=== PATIENT | male | born 1990 | race Caucasian/White ===

== ENCOUNTER 2021-05-23 15:43 | Inpatient (IN) | payer OTHER ==
[2021-05-23] MEDS ORDERED: MAGNESIUM HYDROX 2400MG/30ML ORAL SUSPENSION 30 ML CUP PO PRN (17:45)
[2021-05-23] MEDS ORDERED: BISMUTH SUBSALICYLATE 524 MG/30 ML PO PRN (17:45)
[2021-05-23] MEDS ORDERED: NICOTINE 10 MG CARTRIDGE (INHALER) IH PRN (17:45)
[2021-05-23] MEDS ORDERED: cloNIDine HCL 0.1 MG TABLET PO PRN (17:45)
[2021-05-23] MEDS ORDERED: methaDONE HCL 10 MG TABLET (FOR DETOX USE ONLY) PO ONE (17:45)
[2021-05-23] MEDS ORDERED: MAGNESIUM CITRATE 300 ML BOTTLE PO PRN (17:45)
[2021-05-23] MEDS ORDERED: ONDANSETRON *ODT* 4 MG TABLET SL PRN (17:45)
[2021-05-23] MEDS ORDERED: MAG HYDROX/AL HYDROX/SIMETH 30 ML UNIT-DOSE CUP PO PRN (17:45)
[2021-05-23] MEDS ORDERED: IBUPROFEN 400 MG TABLET (FP) PO PRN (17:45)
[2021-05-23] MEDS ORDERED: ACETAMINOPHEN 325 MG TABLET (FP) PO PRN ×2 (17:45)
[2021-05-23] MEDS ORDERED: MENTHOL/PHENOL 1 EACH UD MM PRN (17:45)
[2021-05-23] MEDS ORDERED: chlordiazePOXIDE HCL 25 MG CAPSULE PO PRN (17:58)
[2021-05-23 19:56] VITALS: BMI 21.8
[2021-05-23] MEDS: hydrOXYzine PAMOATE 25 MG CAPSULE (FP) PO SCH ×3 (22:30→23:13)
[2021-05-23] MEDS: THIAMINE HCL 100 MG TABLET (FP) PO SCH (22:32)
[2021-05-23] MEDS: chlordiazePOXIDE HCL 25 MG CAPSULE PO SCH (22:33)
[2021-05-23] MEDS: MELATONIN 5 MG TABLETS PO SCH (22:34)
[2021-05-24] MEDS: chlordiazePOXIDE HCL 25 MG CAPSULE PO SCH ×5 (05:54→22:31)
[2021-05-24] MEDS: hydrOXYzine PAMOATE 25 MG CAPSULE (FP) PO SCH ×5 (05:55→22:23)
[2021-05-24] MEDS ORDERED: methaDONE HCL 10 MG TABLET (FOR DETOX USE ONLY) ONE (09:23)
[2021-05-24] MEDS: DOLUTEGRAVIR SODIUM 50 MG TABLET (NON-FORMULARY) PO SCH (10:20)
[2021-05-24] MEDS: PRENATAL VITAMINS W/ FOLIC ACID TABLET (FP) PO SCH (10:21)
[2021-05-24] MEDS: EMTRICITABINE 200MG/TENOFOVIR 300MG PO SCH (10:21)
[2021-05-24 14:43] LABS: HEMATOCRIT 36.8 % (35.4-49); HEMOGLOBIN 12.2 GM/dL (11.7-16.9); MCHC 33.3 g/dl (32.0-35.9); MEAN CELL VOLUME 87.2 fl (80-96); MEAN PLT VOLUME 8.5 fl (7.5-11.1); PLATELET COUNT 206 10^3/uL (134-434); RBC 4.22 M/mm3 (4.00-5.60); RDW 12.8 % (11.9-15.9); WHITE BLOOD COUNT 4.5 K/mm3 (4.0-10.0)
[2021-05-24 14:59] LABS: ALBUMIN 2.9 g/dl (3.4-5.0); BLOOD UREA NITROGEN 12.5 mg/dL (7-18)
[2021-05-24 15:02] LABS: CREATININE 0.8 mg/dL (0.55-1.3)
[2021-05-24 15:03] LABS: BILIRUBIN,TOTAL 0.4 mg/dL (0.2-1)
[2021-05-24 15:04] LABS: TOT PROT 6.2 g/dl (6.4-8.2)
[2021-05-24 15:36] LABS: HIV INTERPRETATION NEGATIVE (NEGATIVE)
[2021-05-24] MEDS: METHOCARBAMOL 500 MG TABLET PO PRN (18:42)
[2021-05-24] MEDS: THIAMINE HCL 100 MG TABLET (FP) PO SCH (22:21)
[2021-05-24] MEDS: MELATONIN 5 MG TABLETS PO SCH (22:22)
[2021-05-25] MEDS: chlordiazePOXIDE HCL 25 MG CAPSULE PO SCH ×5 (05:04→22:25)
[2021-05-25] MEDS: hydrOXYzine PAMOATE 25 MG CAPSULE (FP) PO SCH ×5 (05:04→22:25)
[2021-05-25] MEDS ORDERED: methaDONE HCL 10 MG TABLET (FOR DETOX USE ONLY) PO ONE (10:00)
[2021-05-25] MEDS: METHOCARBAMOL 500 MG TABLET PO PRN ×2 (10:16→17:29)
[2021-05-25] MEDS: EMTRICITABINE 200MG/TENOFOVIR 300MG PO SCH (10:18)
[2021-05-25] MEDS: DOLUTEGRAVIR SODIUM 50 MG TABLET (NON-FORMULARY) PO SCH (10:18)
[2021-05-25] MEDS: PRENATAL VITAMINS W/ FOLIC ACID TABLET (FP) PO SCH (10:24)
[2021-05-25] MEDS: THIAMINE HCL 100 MG TABLET (FP) PO SCH (22:24)
[2021-05-25] MEDS: MELATONIN 5 MG TABLETS PO SCH (22:25)
[2021-05-26] MEDS ORDERED: chlordiazePOXIDE HCL 10 MG CAPSULE PO PRN
[2021-05-26] MEDS: hydrOXYzine PAMOATE 25 MG CAPSULE (FP) PO SCH ×5 (05:51→22:10)
[2021-05-26] MEDS: chlordiazePOXIDE HCL 10 MG CAPSULE PO SCH ×4 (05:51→22:10)
[2021-05-26] MEDS ORDERED: methaDONE HCL 10 MG TABLET (FOR DETOX USE ONLY) ONE (09:53)
[2021-05-26] MEDS: PRENATAL VITAMINS W/ FOLIC ACID TABLET (FP) PO SCH (10:16)
[2021-05-26] MEDS: EMTRICITABINE 200MG/TENOFOVIR 300MG PO SCH (10:20)
[2021-05-26] MEDS: DOLUTEGRAVIR SODIUM 50 MG TABLET (NON-FORMULARY) PO SCH (10:20)
[2021-05-26] MEDS: MELATONIN 5 MG TABLETS PO SCH (22:10)
[2021-05-26] MEDS: THIAMINE HCL 100 MG TABLET (FP) PO SCH (22:10)
[2021-05-26] MEDS: METHOCARBAMOL 500 MG TABLET PO PRN (22:13)
[2021-05-27] MEDS ORDERED: chlordiazePOXIDE HCL 10 MG CAPSULE PO SCH (05:00)
[2021-05-27] MEDS: hydrOXYzine PAMOATE 25 MG CAPSULE (FP) PO SCH ×2 (05:51→10:02)
[2021-05-27 09:00] VITALS: BP 99/59; PULSE 100; TEMP 98
[2021-05-27] MEDS ORDERED: methaDONE HCL 10 MG TABLET (FOR DETOX USE ONLY) PO ONE (10:00)
[2021-05-27] MEDS: PRENATAL VITAMINS W/ FOLIC ACID TABLET (FP) PO SCH (10:03)
[2021-05-27] MEDS: DOLUTEGRAVIR SODIUM 50 MG TABLET (NON-FORMULARY) PO SCH (10:03)
[2021-05-27] MEDS: METHOCARBAMOL 500 MG TABLET PO PRN (10:03)
[2021-05-27] MEDS: EMTRICITABINE 200MG/TENOFOVIR 300MG PO SCH (10:03)
[2021-05-28] MEDS ORDERED: chlordiazePOXIDE HCL 10 MG CAPSULE PO ONE (05:00)
== END 2021-05-27 10:50 | disposition left against medical advice (07) | DRG 770 ==
LOC: YASAS 15:43 → Y3N 19:18
PROVIDERS: ADMIT Allergy & Immunology; ATTEND Allergy & Immunology
PROC: HZ2ZZZZ Detoxification Services for Substance Abuse Treatment (ICD-10-PCS; principal; 2021-05-23)
DX: F11.23 Opioid dependence with withdrawal (principal); F10.230 Alcohol dependence with withdrawal, uncomplicated; F14.20 Cocaine dependence, uncomplicated; F17.210 Nicotine dependence, cigarettes, uncomplicated; L40.9 Psoriasis, unspecified; E46 Unspecified protein-calorie malnutrition; Z68.21 Body mass index [BMI] 21.0-21.9, adult; M54.59 Other low back pain; G89.29 Other chronic pain; Z20.6 Contact with and (suspected) exposure to human immunodeficiency virus [HIV]
CPT/HCPCS: 36415; 80053; 85027; 86780; 87389; C9803; U0003; U0005

== ENCOUNTER 2021-12-21 17:57 | Inpatient (IN) | payer OTHER ==
[2021-12-21 21:36] VITALS: BMI 20.5
[2021-12-21] MEDS ORDERED: MAG HYDROX/AL HYDROX/SIMETH 30 ML UNIT-DOSE CUP PO PRN (21:54)
[2021-12-21] MEDS ORDERED: IBUPROFEN 600 MG TABLET (FP) PO PRN (21:54)
[2021-12-21] MEDS ORDERED: DICYCLOMINE HCL 10 MG CAPSULE PO PRN (21:54)
[2021-12-21] MEDS ORDERED: MAGNESIUM HYDROX 2400MG/30ML ORAL SUSPENSION 30 ML CUP PO PRN (21:54)
[2021-12-21] MEDS ORDERED: NICOTINE POLACRILEX 2 MG GUM BUC PRN (21:54)
[2021-12-21] MEDS ORDERED: BENZOCAINE/MENTHOL (CHLORASEPTIC ) LOZENGE MM PRN (21:54)
[2021-12-21] MEDS ORDERED: NICOTINE 7 MG/24 HOURS TOPICAL PATCH TD PRN (21:54)
[2021-12-21] MEDS ORDERED: ONDANSETRON *ODT* 4 MG TABLET SL PRN (21:54)
[2021-12-21] MEDS ORDERED: NICOTINE 10 MG CARTRIDGE (INHALER) IH PRN (21:54)
[2021-12-21] MEDS ORDERED: IBUPROFEN 400 MG TABLET (FP) PO PRN (21:54)
[2021-12-21] MEDS ORDERED: LOPERAMIDE HCL 2 MG CAPSULE PO PRN (21:54)
[2021-12-21] MEDS ORDERED: P-EPHED 60MG/TRIPROLIDI 2.5MG TABLET PO PRN (21:54)
[2021-12-21] MEDS ORDERED: MAGNESIUM CITRATE 300 ML BOTTLE PO PRN (21:54)
[2021-12-21] MEDS ORDERED: BISMUTH SUBSALICYLATE 524 MG/30 ML PO PRN (21:54)
[2021-12-21] MEDS ORDERED: ACETAMINOPHEN 325 MG TABLET (FP) PO PRN ×2 (21:54)
[2021-12-21] MEDS ORDERED: guaiFENesin 200 MG/10 ML 10 ML UNIT-DOSE CUPS PO PRN (21:54)
[2021-12-21] MEDS ORDERED: HYDROCORTISONE 1% TOPICAL CREAM 30 GM TUBE TP PRN (21:58)
[2021-12-21] MEDS ORDERED: methaDONE HCL 10 MG TABLET (FOR DETOX USE ONLY) PO ONE (21:58)
[2021-12-21] MEDS ORDERED: cloNIDine HCL 0.1 MG TABLET PO PRN (21:58)
[2021-12-22] MEDS: METHOCARBAMOL 500 MG TABLET PO PRN ×3 (03:24→19:11)
[2021-12-22] MEDS: diazePAM 5 MG TABLET PO PRN ×4 (03:25→23:08)
[2021-12-22] MEDS: MELATONIN 5 MG TABLETS PO SCH ×2 (04:07→22:16)
[2021-12-22] MEDS: THIAMINE HCL 100 MG TABLET (FP) PO SCH ×2 (04:08→22:17)
[2021-12-22] MEDS ORDERED: methaDONE HCL 10 MG TABLET (FOR DETOX USE ONLY) ONE (09:52)
[2021-12-22] MEDS: PRENATAL VITAMINS W/ FOLIC ACID TABLET (FP) PO SCH (10:15)
[2021-12-22] MEDS: hydrOXYzine PAMOATE 25 MG CAPSULE (FP) PO PRN ×2 (10:15→22:19)
[2021-12-23] MEDS: diazePAM 5 MG TABLET PO PRN ×4 (05:48→22:06)
[2021-12-23] MEDS ORDERED: methaDONE HCL 10 MG TABLET (FOR DETOX USE ONLY) PO ONE (10:00)
[2021-12-23 10:24] LABS: BASO % 1.2 % (0-2.0); EOS % 2.9 % (0-4.5); HEMATOCRIT 41.7 % (35.4-49); HEMOGLOBIN 13.9 GM/dL (11.7-16.9); LYMPH % 20.9 % (8-40); MCH 28.7 pg (25.7-33.7); MCHC 33.2 g/dl (32.0-35.9); MEAN CELL VOLUME 86.2 fl (80-96); MEAN PLT VOLUME 9.4 fl (7.5-11.1); MONO % 10.8 % (3.8-10.2); NEUT % 64.2 % (42.8-82.8); PLATELET COUNT 210 10^3/uL (134-434); RBC 4.83 M/mm3 (4.00-5.60); RDW 12.1 % (11.9-15.9); WHITE BLOOD COUNT 4.5 K/mm3 (4.0-10.0)
[2021-12-23] MEDS: hydrOXYzine PAMOATE 25 MG CAPSULE (FP) PO PRN ×3 (10:35→22:05)
[2021-12-23] MEDS: METHOCARBAMOL 500 MG TABLET PO PRN ×3 (10:35→22:05)
[2021-12-23] MEDS: PRENATAL VITAMINS W/ FOLIC ACID TABLET (FP) PO SCH (10:35)
[2021-12-23 10:50] LABS: ALBUMIN 3.5 g/dl (3.4-5.0); BLOOD UREA NITROGEN 13.4 mg/dL (7-18); CALCIUM 9.4 mg/dL (8.5-10.1)
[2021-12-23 10:53] LABS: CREATININE 0.7 mg/dL (0.55-1.3)
[2021-12-23 10:55] LABS: BILIRUBIN,TOTAL 0.8 mg/dL (0.2-1); TOT PROT 7.6 g/dl (6.4-8.2)
[2021-12-23] MEDS: MELATONIN 5 MG TABLETS PO SCH (22:05)
[2021-12-23] MEDS: THIAMINE HCL 100 MG TABLET (FP) PO SCH (22:05)
[2021-12-24] MEDS ORDERED: methaDONE HCL 10 MG TABLET (FOR DETOX USE ONLY) ONE (08:36)
[2021-12-24] MEDS: PRENATAL VITAMINS W/ FOLIC ACID TABLET (FP) PO SCH (10:18)
[2021-12-24] MEDS: diazePAM 5 MG TABLET PO PRN ×3 (10:18→21:35)
[2021-12-24] MEDS: hydrOXYzine PAMOATE 25 MG CAPSULE (FP) PO PRN (19:30)
[2021-12-24] MEDS: METHOCARBAMOL 500 MG TABLET PO PRN (19:30)
[2021-12-24] MEDS: THIAMINE HCL 100 MG TABLET (FP) PO SCH (21:37)
[2021-12-24] MEDS: MELATONIN 5 MG TABLETS PO SCH (21:37)
[2021-12-25] MEDS: hydrOXYzine PAMOATE 25 MG CAPSULE (FP) PO PRN (05:14)
[2021-12-25] MEDS: METHOCARBAMOL 500 MG TABLET PO PRN (05:14)
[2021-12-25 09:11] VITALS: BP 96/55; PULSE 79; TEMP 97.6
[2021-12-25] MEDS ORDERED: diazePAM 5 MG TABLET PO PRN (09:39)
[2021-12-25] MEDS ORDERED: methaDONE HCL 10 MG TABLET (FOR DETOX USE ONLY) PO ONE (10:00)
[2021-12-25] MEDS: PRENATAL VITAMINS W/ FOLIC ACID TABLET (FP) PO SCH (10:22)
== END 2021-12-25 13:00 | disposition home or self-care (01) | DRG 773 ==
LOC: YASAS 17:57 → Y3N 12-22 01:29
PROVIDERS: ADMIT Allergy & Immunology; ATTEND Surgery
PROC: HZ2ZZZZ Detoxification Services for Substance Abuse Treatment (ICD-10-PCS; principal; 2021-12-22)
DX: F11.23 Opioid dependence with withdrawal (principal); F14.20 Cocaine dependence, uncomplicated; F15.10 Other stimulant abuse, uncomplicated; F17.210 Nicotine dependence, cigarettes, uncomplicated; M54.50 Low back pain, unspecified; G89.29 Other chronic pain; R74.01 Elevation of levels of liver transaminase levels; R03.0 Elevated blood-pressure reading, without diagnosis of hypertension; R73.9 Hyperglycemia, unspecified
CPT/HCPCS: 36415; 80053; 85025; 86780; C9803-CS; U0003; U0005

== ENCOUNTER 2022-07-18 16:17 | Inpatient (IN) | payer OTHER ==
[2022-07-18 17:48] VITALS: BMI 22.1
[2022-07-18] MEDS ORDERED: ACETAMINOPHEN 325 MG TABLET (FP) PO PRN ×2 (19:08)
[2022-07-18] MEDS ORDERED: NICOTINE POLACRILEX 2 MG GUM BUC PRN (19:08)
[2022-07-18] MEDS ORDERED: MAGNESIUM HYDROX 2400MG/30ML ORAL SUSPENSION 30 ML CUP PO PRN (19:08)
[2022-07-18] MEDS ORDERED: BENZOCAINE/MENTHOL (CHLORASEPTIC ) LOZENGE MM PRN (19:08)
[2022-07-18] MEDS ORDERED: NALOXONE HCL (KLOXXADO) 8 MG SPRAY NS PRN (19:08)
[2022-07-18] MEDS ORDERED: BISMUTH SUBSALICYLATE 524 MG/30 ML PO PRN (19:08)
[2022-07-18] MEDS ORDERED: MAG HYDROX/AL HYDROX/SIMETH 30 ML UNIT-DOSE CUP PO PRN (19:08)
[2022-07-18] MEDS ORDERED: DICYCLOMINE HCL 10 MG CAPSULE PO PRN (19:08)
[2022-07-18] MEDS ORDERED: POLYETHYLENE GLYCOL (HEALTHYLAX) 3350 17 GM PACKET PO PRN (19:08)
[2022-07-18] MEDS ORDERED: P-EPHED 60MG/TRIPROLIDI 2.5MG TABLET PO PRN (19:08)
[2022-07-18] MEDS ORDERED: LOPERAMIDE HCL 2 MG CAPSULE PO PRN (19:08)
[2022-07-18] MEDS ORDERED: guaiFENesin 200 MG/10 ML 10 ML UNIT-DOSE CUPS PO PRN (19:08)
[2022-07-18] MEDS ORDERED: NALOXONE HCL 0.4 MG/ML VIAL IM PRN (19:08)
[2022-07-18] MEDS ORDERED: NICOTINE 10 MG CARTRIDGE (INHALER) IH PRN (19:08)
[2022-07-18] MEDS ORDERED: IBUPROFEN 400 MG TABLET (FP) PO PRN (19:08)
[2022-07-18] MEDS ORDERED: ACETAMINOPHEN 325 MG TABLET (FP) ONE (19:37)
[2022-07-18] MEDS ORDERED: methaDONE HCL 10 MG TABLET (FOR DETOX USE ONLY) PO ONE (20:00)
[2022-07-18] MEDS: MELATONIN 5 MG TABLETS PO PRN (22:59)
[2022-07-18] MEDS: THIAMINE HCL 100 MG TABLET (FP) PO SCH (22:59)
[2022-07-18] MEDS: METHOCARBAMOL 500 MG TABLET PO PRN (23:00)
[2022-07-19] MEDS: FAMOTIDINE 20 MG TABLET PO SCH ×3 (00:04→22:34)
[2022-07-19] MEDS: PRENATAL VITAMINS W/ FOLIC ACID TABLET (FP) PO SCH (10:34)
[2022-07-19] MEDS: CARVEDILOL 3.125 MG TABLET (FP) PO SCH ×2 (10:34→22:35)
[2022-07-19] MEDS: LOSARTAN POTASSIUM 25 MG TABLET PO SCH (10:34)
[2022-07-19 13:43] LABS: HEMATOCRIT 36.9 % (35.4-49); MCH 29.2 pg (25.7-33.7); MCHC 32.6 g/dl (32.0-35.9); MEAN CELL VOLUME 89.8 fl (80-96); MEAN PLT VOLUME 9.2 fl (7.5-11.1); PLATELET COUNT 198 10^3/uL (134-434); RBC 4.11 M/mm3 (4.00-5.60); RDW 12.4 % (11.9-15.9); WHITE BLOOD COUNT 5.2 K/mm3 (4.0-10.0)
[2022-07-19 13:56] LABS: BLOOD UREA NITROGEN 17.5 mg/dL (7-18); CALCIUM 8.7 mg/dL (8.5-10.1)
[2022-07-19 13:59] LABS: CREATININE 0.8 mg/dL (0.55-1.3)
[2022-07-19 14:01] LABS: BILIRUBIN,TOTAL 0.5 mg/dL (0.2-1); TOT PROT 6.2 g/dl (6.4-8.2)
[2022-07-19] MEDS: METHOCARBAMOL 500 MG TABLET PO PRN (19:00)
[2022-07-19] MEDS: IBUPROFEN 600 MG TABLET (FP) PO PRN (19:01)
[2022-07-19] MEDS: MELATONIN 5 MG TABLETS PO PRN (22:33)
[2022-07-19] MEDS: THIAMINE HCL 100 MG TABLET (FP) PO SCH (22:33)
[2022-07-19] MEDS: diazePAM 5 MG TABLET PO PRN (22:43)
[2022-07-20] MEDS ORDERED: methaDONE HCL 10 MG TABLET (FOR DETOX USE ONLY) PO ONE (10:00)
[2022-07-20] MEDS: LOSARTAN POTASSIUM 25 MG TABLET PO SCH (10:56)
[2022-07-20] MEDS: CARVEDILOL 3.125 MG TABLET (FP) PO SCH ×2 (10:56→21:11)
[2022-07-20] MEDS: PRENATAL VITAMINS W/ FOLIC ACID TABLET (FP) PO SCH (10:57)
[2022-07-20] MEDS: FAMOTIDINE 20 MG TABLET PO SCH ×2 (10:57→21:11)
[2022-07-20] MEDS: METHOCARBAMOL 500 MG TABLET PO PRN (12:54)
[2022-07-20] MEDS: IBUPROFEN 600 MG TABLET (FP) PO PRN (12:54)
[2022-07-20] MEDS: MELATONIN 5 MG TABLETS PO PRN (21:12)
[2022-07-20] MEDS: diazePAM 5 MG TABLET PO PRN (21:12)
[2022-07-20] MEDS: THIAMINE HCL 100 MG TABLET (FP) PO SCH (21:14)
[2022-07-21] MEDS: diazePAM 5 MG TABLET PO PRN ×4 (02:14→21:47)
[2022-07-21] MEDS: FAMOTIDINE 20 MG TABLET PO SCH ×2 (09:57→21:47)
[2022-07-21] MEDS: CARVEDILOL 3.125 MG TABLET (FP) PO SCH ×2 (09:57→21:47)
[2022-07-21] MEDS: PRENATAL VITAMINS W/ FOLIC ACID TABLET (FP) PO SCH (09:57)
[2022-07-21] MEDS: LOSARTAN POTASSIUM 25 MG TABLET PO SCH (09:58)
[2022-07-21] MEDS: IBUPROFEN 600 MG TABLET (FP) PO PRN (11:21)
[2022-07-21] MEDS: METHOCARBAMOL 500 MG TABLET PO PRN ×2 (11:21→21:47)
[2022-07-21 18:16] VITALS: RESP 18
[2022-07-21] MEDS: MELATONIN 5 MG TABLETS PO PRN (21:47)
[2022-07-21] MEDS: THIAMINE HCL 100 MG TABLET (FP) PO SCH (21:47)
[2022-07-21] MEDS ORDERED: diphenhydrAMINE HCL 25 MG CAPSULE (FP) PO ONE (23:37)
[2022-07-22 07:17] VITALS: BP 122/76; PULSE 63; TEMP 98.2
[2022-07-22] MEDS: CARVEDILOL 3.125 MG TABLET (FP) PO SCH (10:50)
[2022-07-22] MEDS: FAMOTIDINE 20 MG TABLET PO SCH (10:50)
[2022-07-22] MEDS: PRENATAL VITAMINS W/ FOLIC ACID TABLET (FP) PO SCH (10:50)
[2022-07-22] MEDS: LOSARTAN POTASSIUM 25 MG TABLET PO SCH (10:50)
== END 2022-07-22 11:36 | disposition home or self-care (01) | DRG 773 ==
LOC: YASAS 16:17 → Y3N 20:15
PROVIDERS: ADMIT Allergy & Immunology; ATTEND Family Medicine
PROC: HZ2ZZZZ Detoxification Services for Substance Abuse Treatment (ICD-10-PCS; principal; 2022-07-18)
DX: F11.23 Opioid dependence with withdrawal (principal); F14.20 Cocaine dependence, uncomplicated; F12.20 Cannabis dependence, uncomplicated; F17.210 Nicotine dependence, cigarettes, uncomplicated; U07.1 COVID-19; L40.9 Psoriasis, unspecified; M54.50 Low back pain, unspecified; G89.29 Other chronic pain; Z20.6 Contact with and (suspected) exposure to human immunodeficiency virus [HIV]; R63.4 Abnormal weight loss; Z68.22 Body mass index [BMI] 22.0-22.9, adult; Z86.79 Personal history of other diseases of the circulatory system
CPT/HCPCS: 36415; 80053; 85027; 86780; 93005; 93010; C9803-CS; U0003; U0005

== ENCOUNTER 2022-09-03 17:37 | Inpatient (IN) | payer OTHER ==
[2022-09-03 19:34] VITALS: BMI 21.2
[2022-09-03] MEDS ORDERED: POLYETHYLENE GLYCOL (HEALTHYLAX) 3350 17 GM PACKET PO PRN (21:05)
[2022-09-03] MEDS ORDERED: ACETAMINOPHEN 325 MG TABLET (FP) PO PRN (21:05)
[2022-09-03] MEDS ORDERED: DICYCLOMINE HCL 10 MG CAPSULE PO PRN (21:05)
[2022-09-03] MEDS ORDERED: NICOTINE POLACRILEX 2 MG GUM BUC PRN (21:05)
[2022-09-03] MEDS ORDERED: methaDONE HCL 10 MG TABLET (FOR DETOX USE ONLY) PO ONE (21:05)
[2022-09-03] MEDS ORDERED: MAG HYDROX/AL HYDROX/SIMETH 30 ML UNIT-DOSE CUP PO PRN (21:05)
[2022-09-03] MEDS ORDERED: BENZOCAINE/MENTHOL (CHLORASEPTIC ) LOZENGE MM PRN (21:05)
[2022-09-03] MEDS ORDERED: BENZONATATE 200 MG CAPSULE PO PRN (21:05)
[2022-09-03] MEDS ORDERED: IBUPROFEN 600 MG TABLET (FP) PO PRN (21:05)
[2022-09-03] MEDS ORDERED: LOPERAMIDE HCL 2 MG CAPSULE PO PRN (21:05)
[2022-09-03] MEDS ORDERED: IBUPROFEN 400 MG TABLET (FP) PO PRN (21:05)
[2022-09-03] MEDS ORDERED: NALOXONE HCL 0.4 MG/ML VIAL IM PRN (21:05)
[2022-09-03] MEDS ORDERED: NALOXONE HCL (KLOXXADO) 8 MG SPRAY NS PRN (21:05)
[2022-09-03] MEDS ORDERED: guaiFENesin 600 MG TABLET.ER (FP) PO PRN (21:05)
[2022-09-03] MEDS ORDERED: MAGNESIUM HYDROX 2400MG/30ML ORAL SUSPENSION 30 ML CUP PO PRN (21:05)
[2022-09-03] MEDS ORDERED: methaDONE HCL 10 MG TABLET (FOR DETOX USE ONLY) ONE (23:07)
[2022-09-03] MEDS: MELATONIN 5 MG TABLETS PO SCH (23:16)
[2022-09-03] MEDS: FAMOTIDINE 20 MG TABLET PO SCH (23:16)
[2022-09-03] MEDS: CARVEDILOL 3.125 MG TABLET (FP) PO SCH (23:16)
[2022-09-03] MEDS: THIAMINE HCL 100 MG TABLET (FP) PO SCH (23:17)
[2022-09-04] MEDS: AMOX TR/POT CLAV 875MG/125MG TABLETS (FP) PO SCH ×2 (09:21→18:23)
[2022-09-04] MEDS: FAMOTIDINE 20 MG TABLET PO SCH ×2 (10:47→22:41)
[2022-09-04] MEDS: PRENATAL VITAMINS W/ FOLIC ACID TABLET (FP) PO SCH (10:47)
[2022-09-04] MEDS: NICOTINE 14 MG/24 HOURS TOPICAL PATCH TD SCH (10:49)
[2022-09-04] MEDS: LOSARTAN POTASSIUM 25 MG TABLET PO SCH (11:58)
[2022-09-04] MEDS: CARVEDILOL 3.125 MG TABLET (FP) PO SCH ×2 (11:58→22:41)
[2022-09-04 13:17] LABS: HEMATOCRIT 37.5 % (35.4-49); HEMOGLOBIN 12.6 GM/dL (11.7-16.9); MCH 28.8 pg (25.7-33.7); MCHC 33.8 g/dl (32.0-35.9); MEAN CELL VOLUME 85.4 fl (80-96); MEAN PLT VOLUME 8.5 fl (7.5-11.1); PLATELET COUNT 198 10^3/uL (134-434); RBC 4.39 M/mm3 (4.00-5.60); RDW 12.2 % (11.9-15.9); WHITE BLOOD COUNT 4.7 K/mm3 (4.0-10.0)
[2022-09-04 13:34] LABS: CALCIUM 8.7 mg/dL (8.5-10.1)
[2022-09-04 13:35] LABS: ALBUMIN 3.3 g/dl (3.4-5.0); BLOOD UREA NITROGEN 10.8 mg/dL (7-18)
[2022-09-04 13:37] LABS: BILIRUBIN,TOTAL 0.4 mg/dL (0.2-1)
[2022-09-04 13:38] LABS: CREATININE 0.8 mg/dL (0.55-1.3)
[2022-09-04 13:39] LABS: TOT PROT 6.7 g/dl (6.4-8.2)
[2022-09-04] MEDS: diazePAM 5 MG TABLET PO PRN ×2 (18:26→22:43)
[2022-09-04] MEDS: THIAMINE HCL 100 MG TABLET (FP) PO SCH (22:41)
[2022-09-04] MEDS: MELATONIN 5 MG TABLETS PO SCH (22:42)
[2022-09-05] MEDS: AMOX TR/POT CLAV 875MG/125MG TABLETS (FP) PO SCH ×2 (07:03→18:02)
[2022-09-05] MEDS ORDERED: methaDONE HCL 10 MG TABLET (FOR DETOX USE ONLY) PO ONE (10:00)
[2022-09-05] MEDS: LOSARTAN POTASSIUM 25 MG TABLET PO SCH (10:08)
[2022-09-05] MEDS: CARVEDILOL 3.125 MG TABLET (FP) PO SCH ×2 (10:08→22:43)
[2022-09-05] MEDS: FAMOTIDINE 20 MG TABLET PO SCH ×2 (10:09→22:43)
[2022-09-05] MEDS: NICOTINE 14 MG/24 HOURS TOPICAL PATCH TD SCH (10:09)
[2022-09-05] MEDS: PRENATAL VITAMINS W/ FOLIC ACID TABLET (FP) PO SCH (10:09)
[2022-09-05] MEDS: diazePAM 5 MG TABLET PO PRN (18:02)
[2022-09-05] MEDS: MELATONIN 5 MG TABLETS PO SCH (22:43)
[2022-09-05] MEDS: THIAMINE HCL 100 MG TABLET (FP) PO SCH (22:44)
[2022-09-06] MEDS: diazePAM 5 MG TABLET PO PRN (05:34)
[2022-09-06 06:26] VITALS: PULSE 69; RESP 17
[2022-09-06] MEDS: AMOX TR/POT CLAV 875MG/125MG TABLETS (FP) PO SCH (07:09)
[2022-09-06 09:06] VITALS: BP 114/68; TEMP 98.6
[2022-09-06] MEDS: FAMOTIDINE 20 MG TABLET PO SCH (10:30)
[2022-09-06] MEDS: PRENATAL VITAMINS W/ FOLIC ACID TABLET (FP) PO SCH (10:30)
[2022-09-06] MEDS: LOSARTAN POTASSIUM 25 MG TABLET PO SCH (10:30)
[2022-09-06] MEDS: CARVEDILOL 3.125 MG TABLET (FP) PO SCH (10:30)
[2022-09-06] MEDS: NICOTINE 14 MG/24 HOURS TOPICAL PATCH TD SCH (10:32)
[2022-09-07] MEDS ORDERED: methaDONE HCL 10 MG TABLET (FOR DETOX USE ONLY) PO ONE (10:00)
== END 2022-09-06 12:38 | disposition left against medical advice (07) | DRG 770 ==
LOC: YASAS 17:37 → Y6N 23:36
PROVIDERS: ADMIT Allergy & Immunology; ATTEND Surgery
PROC: HZ2ZZZZ Detoxification Services for Substance Abuse Treatment (ICD-10-PCS; principal; 2022-09-03)
DX: F11.23 Opioid dependence with withdrawal (principal); F14.20 Cocaine dependence, uncomplicated; F17.210 Nicotine dependence, cigarettes, uncomplicated; L03.114 Cellulitis of left upper limb; Z20.6 Contact with and (suspected) exposure to human immunodeficiency virus [HIV]; Z86.79 Personal history of other diseases of the circulatory system
CPT/HCPCS: 36415; 80053; 85027; 86780; 87811; 93005; 93010; C9803-CS; U0003; U0005

== ENCOUNTER 2023-11-18 13:10 | Inpatient (IN) | payer OTHER ==
[2023-11-18 13:53] VITALS: BMI 19.9
[2023-11-18] MEDS ORDERED: BISMUTH SUBSALICYLATE 524 MG/30 ML PO PRN (16:35)
[2023-11-18] MEDS ORDERED: POLYETHYLENE GLYCOL (HEALTHYLAX) 3350 17 GM PACKET PO PRN (16:35)
[2023-11-18] MEDS ORDERED: MAG HYDROX/AL HYDROX/SIMETH 30 ML UNIT-DOSE CUP PO PRN (16:35)
[2023-11-18] MEDS ORDERED: MAGNESIUM HYDROX 2400MG/30ML ORAL SUSPENSION 30 ML CUP PO PRN (16:35)
[2023-11-18] MEDS ORDERED: ACETAMINOPHEN 325 MG TABLET (FP) PO PRN (16:35)
[2023-11-18] MEDS ORDERED: DICYCLOMINE HCL 10 MG CAPSULE PO PRN (16:35)
[2023-11-18] MEDS ORDERED: NALOXONE HCL (KLOXXADO) 8 MG SPRAY NS PRN (16:35)
[2023-11-18] MEDS ORDERED: guaiFENesin 600 MG TABLET.ER (FP) PO PRN (16:35)
[2023-11-18] MEDS ORDERED: ONDANSETRON *ODT* 4 MG TABLET SL PRN (16:35)
[2023-11-18] MEDS ORDERED: LOPERAMIDE HCL 2 MG CAPSULE PO PRN (16:35)
[2023-11-18] MEDS ORDERED: BENZOCAINE/MENTHOL (CHLORASEPTIC ) LOZENGE MM PRN (16:35)
[2023-11-18] MEDS ORDERED: IBUPROFEN 400 MG TABLET (FP) PO PRN (16:35)
[2023-11-18] MEDS ORDERED: IBUPROFEN 600 MG TABLET (FP) PO PRN (16:35)
[2023-11-18] MEDS ORDERED: BENZONATATE 200 MG CAPSULE PO PRN (16:35)
[2023-11-18] MEDS ORDERED: NALOXONE HCL 0.4 MG/ML VIAL IM PRN (16:35)
[2023-11-18] MEDS ORDERED: methaDONE HCL 10 MG TABLET (FOR DETOX USE ONLY) ONE (17:40)
[2023-11-18] MEDS: methaDONE HCL 10 MG TABLET (FOR DETOX USE ONLY) PO ONE (17:44)
[2023-11-18] MEDS: hydrOXYzine PAMOATE 25 MG CAPSULE (FP) PO PRN (18:31)
[2023-11-18] MEDS: METHOCARBAMOL 500 MG TABLET PO PRN (18:31)
[2023-11-18] MEDS: THIAMINE 100 MG TABLET PO SCH (22:38)
[2023-11-18] MEDS: MELATONIN 5 MG TABLETS PO SCH (22:38)
[2023-11-19] MEDS: cloNIDine HCL 0.1 MG TABLET PO PRN (02:00)
[2023-11-19] MEDS: PRENATAL VITAMINS W/ FOLIC ACID TABLET (FP) PO SCH (09:54)
[2023-11-19] MEDS: NICOTINE 14 MG/24 HOURS TOPICAL PATCH TD SCH (09:54)
[2023-11-19 10:26] LABS: CHLORIDE 106 mmol/L (98-107); SODIUM 140 mmol/L (136-145)
[2023-11-19 10:29] LABS: ALBUMIN 2.9 g/dl (3.4-5.0); ANION GAP 5 mmol/L (4-13); BLOOD UREA NITROGEN 11.4 mg/dL (7-18); CALCIUM 9.2 mg/dL (8.5-10.1); CO2 30 mmol/L (21-32); GLUCOSE,RANDOM 91 mg/dL (74-106); HEMATOCRIT 32.3 % (35.4-49); HEMOGLOBIN 10.7 GM/dL (11.7-16.9); MCHC 33.3 g/dl (32.0-35.9); MEAN CELL VOLUME 84.2 fl (80-96); MEAN PLT VOLUME 7.7 fl (7.5-11.1); PLATELET COUNT 337 10^3/uL (134-434); RBC 3.84 M/mm3 (4.00-5.60); RDW 13.7 % (11.9-15.9); WHITE BLOOD COUNT 6.9 K/mm3 (4.0-10.0)
[2023-11-19 10:31] LABS: CREATININE 0.7 mg/dL (0.55-1.3); SGOT/AST 25 U/L (15-37); SGPT/ALT 28 U/L (13-61)
[2023-11-19 10:33] LABS: BILIRUBIN,TOTAL 0.2 mg/dL (0.2-1); TOT PROT 8.6 g/dl (6.4-8.2)
[2023-11-19 10:35] LABS: ALK PHOS 81 U/L (45-117)
[2023-11-19] MEDS: methaDONE HCL 10 MG TABLET PO ONE (11:09)
[2023-11-19] MEDS: diazePAM 5 MG TABLET PO PRN (17:37)
[2023-11-20 05:24] VITALS: BP 106/56; PULSE 62; RESP 18; TEMP 97.7
[2023-11-20] MEDS: methaDONE HCL 40 MG DISPERSABLE TABLET PO ONE (09:38)
[2023-11-20] MEDS ORDERED: methaDONE HCL 10 MG TABLET (FOR DETOX USE ONLY) PO ONE (10:00)
[2023-11-21] MEDS ORDERED: methaDONE HCL 10 MG TABLET PO ONE (10:00)
[2023-11-22] MEDS ORDERED: methaDONE HCL 10 MG TABLET PO ONE (10:00)
[2023-11-22] MEDS ORDERED: methaDONE 40 MG, methaDONE 10 MG PO ONE (10:00)
[2023-11-22] MEDS ORDERED: methaDONE HCL 10 MG TABLET (FOR DETOX USE ONLY) PO ONE (10:00)
[2023-11-23] MEDS ORDERED: methaDONE HCL 10 MG TABLET PO ONE (10:00)
== END 2023-11-20 11:45 | disposition left against medical advice (07) | DRG 770 ==
LOC: YASAS 13:10 → Y6N 15:42
PROVIDERS: ADMIT Allergy & Immunology; ATTEND Surgery
PROC: HZ2ZZZZ Detoxification Services for Substance Abuse Treatment (ICD-10-PCS; principal; 2023-11-18)
DX: F11.23 Opioid dependence with withdrawal (principal); F14.20 Cocaine dependence, uncomplicated; F17.210 Nicotine dependence, cigarettes, uncomplicated; I10 Essential (primary) hypertension
CPT/HCPCS: 36415; 80053; 80305; 80307; 85027; 86780; 93005; 93010